=== PATIENT | male | born 1940 | race Caucasian/White ===

== ENCOUNTER → 2019-05-29 09:56 | Outpatient (CLI) | payer MEDICARE, OTHER ==
--- NOTE | ~2019-05-29 | EC ---
PATIENT:HELGA PAYTON DATE OF SERVICE: 05/29/19 SEX: M MEDICAL RECORD: [id number] DATE OF : 40 LOCATION:[facility] AGE OF PATIENT: 79 ADMISSION DATE: 05/29/19 REFERRING PHYSICIAN: INTERPRETING PHYSICIAN: TIAN JEFFERSON MD ECHOCARDIOGRAM REPORT ECHO CHARGES 4 ECHO COMPLETE Date: 05/29/19 CLINICAL DIAGNOSIS: LVH H/O CAD/CABG/HTN ECHOCARDIOGRAPHIC MEASUREMENTS (adult normal given) AC root (d.<3.7cm) 3.2 cm LV Septum d (<1.2 cm> 1.4 cm Valve Excursion 2.0 cm LV Septum (systole) 2.0 cm Left Atria (s.<4.0cm> 4.6 cm LVPW d(<1.2cm) 0.9 cm RV (d.<2.3cm) 3.2 cm LVPW (sytole) 1.3 cm LV diastole(<5.6CM) 5.9 cm MV E-F(>70mm/sec) cm LV systole 4.3 cm LVOT Diameter 2.0 cm MV exc.(>10mm) cm Est.ejection fraction (50-75%) % DOPPLER: LVIT cm/sec A 48.0 cm/sec E 82.0 cm/sec LA cm/sec RVSP 44.0 mmHg LVOT 101 cm/sec AOP1/2T m/s Asc. Ao 132 cm/sec RVOT 48.0 cm/sec RA cm/sec PA 127 cm/sec AV Gradient Peak 6.9 mmHg AV Mean 3.7 mmHg AV Area 2.3 cm MV Gradient Peak 4.1 mmHg MV Mean 1.3 mmHg MV Area cm COMMENTS: OP - HC Camera Prototyping Engineer: 1 BRENTON CALIXTO Meter/Relay Technician: 3 Dr. Suarez TAPE# PACS Pericardial Effusion N DATE OF SERVICE: Adequate 2D, color flow imaging, spectral Doppler, and M-Mode. LVH is present. LV internal dimension is normal. Wall motion is normal. EF is greater than or equal to 55%. Aortic valve is sclerotic. There is no evidence of stenosis by Doppler interrogation. Left atrium is dilated at 4-6 cm. Mitral valve shows no prolapse. Mild MR. Right-sided chamber is grossly normal. Mild TR. ECHOCARDIOGRAM REPORT [id number] HELGA PAYTON TRANSINT:[id number] Voice Confirmation ID: [id number] DOCUMENT ID: [id number] TIAN JEFFERSON MD CC: [id number] DICTATION DATE: 05/29/19 1546 CANS VACUUM TESTER: 05/29/19 211 [address] [facility] [address] [id number]
--- NOTE | ~2019-05-29 | ST ---
PATIENT:HELGA PAYTON MEDICAL RECORD: [id number] SEX: M LOCATION:[facility] ORDER #: ADMISSION DATE: 05/29/19 AGE OF PATIENT: 79 REFERRING PHYSICIAN: INTERPRETING PHYSICIAN: MONSE BRITO MD DATE OF SERVICE: 05/29/2019 PROCEDURE: Nuclear stress test. INDICATION: Angina and coronary artery disease, previous bypass surgery, hypertension and hyperlipidemia. The patient was exercised on standard Lexiscan protocol with 33 mCi of sestamibi injected at peak stress, 10 mCi used previously for rest images. FINDINGS: Gated SPECT reveals preserved ejection fraction at 64% with good wall motioning and thickening and brightening throughout all segments. SPECT imaging Cardiolite was used as myocardial perfusion agent. There is reversibility inferiorly as well as laterally. This includes the basal, mid, apical inferior segments as well as the apical lateral, mid lateral, basal lateral segments. The very first ability is mild. The amount of myocardium involved is moderate to large. OVERALL IMPRESSION: This is an intermediate risk abnormal nuclear stress test. Reversible ischemia inferiorly as well as laterally, possibly suggestive of hemodynamically significant multivessel coronary artery disease. TRANSINT:[id number] Voice Confirmation ID: [id number] DOCUMENT ID: [id number] MONSE BRITO MD CC: SONI HILL DO [id number] DICTATION DATE: 05/30/19921 NETWORK OPERATIONS SPECIALIST: 05/31/1928 DEP CLI 05/29/19 [address] [place] [id number] [place] [address]
== END | disposition home or self-care (01) ==
LOC: D.HCCECHO 09:56
PROVIDERS: ATTEND Internal Medicine Interventional Cardiology
DX: I25.810 Atherosclerosis of coronary artery bypass graft(s) without angina pectoris (principal); I10 Essential (primary) hypertension

== ENCOUNTER 2019-06-02 12:28 | Outpatient (CLI) | payer MEDICARE, OTHER ==
[~2019-06-02] VITALS: Ht 177.8 cm; Wt 92.0 kg
--- NOTE | ~2019-06-02 | DS ---
PATIENT:HELGA YOUSSEF :40 MEDICAL RECORD: [id number] DISCHARGE SUMMARY ADMISSION DATE: 06/02/19 DISCHARGE DATE: 06/03/19 DISCHARGE DATE: 06/03/2019 DISCHARGE DIAGNOSES: 1. Angina. 2. Coronary artery disease. 3. Hypertension. 4. Hyperlipidemia. HOSPITAL COURSE: Mr. Youssef presents with anginal symptomatology; however, cardiac catheterization reveals wide patency of all his grafts. He was placed on Imdur 30 mg b.i.d. He will follow up with [facility] in 1 month. TRANSINT:[id number] Voice Confirmation ID: [id number] DOCUMENT ID: [id number] MONSE BRITO MD CC: [id number] DICTATION DATE: 06/03/1930 DIESEL CRANE OPERATOR: 06/04/19 0646 DEP CLI 06/03/[address] [address]
--- NOTE | ~2019-06-02 | OP ---
PATIENT NAME: HELGA PAYTON MEDICAL RECORD: [id number] :40 LOCATION:[facility] ADMISSION DATE: SURGEON: MONSE BRITO MD DATE OF OPERATION: 06/03/2019 PROCEDURES: 1. Left heart catheterization. 2. Selective coronary angiography. 3. Left ventriculogram. INDICATION: Angina and coronary artery disease. PROCEDURE IN DETAIL: After informed consent was obtained and after a detailed description of the risks, benefits as well as alternative therapies, the patient elected to proceed with angiogram and heart catheterization. The right femoral area was prepped and draped in normal sterile fashion. Right femoral artery was cannulated via modified Seldinger technique with placement of 6-Albanian sheath. All catheters exchanged through this sheath. FINDINGS: The left ventriculogram was performed in standard 30-degree DUBOIS view, reveals good cardiac wall motion throughout all segments. Overall ejection fraction estimated at 55% to 60%. SELECTIVE CORONARY ANGIOGRAPHY: 1. Left main is with no significant angiographic disease. 2. Left anterior descending is closed in mid vessel. 3. The STRANGE to the LAD is widely patent. Distal LAD is widely patent. 4. Left circumflex is closed in the mid vessel. 5. Vein graft to the first obtuse marginal was widely patent. 6. Vein graft to the second obtuse marginal is widely patent. 7. Right coronary artery is closed in the mid vessel. 8. Vein graft to the right coronary is widely patent. 9. Distal right coronary is widely patent. OVERALL IMPRESSION: Wide patency of all grafts. Continue medical management of the coronary artery disease and cardiac risk factors. TRANSINT:[id number] Voice Confirmation ID: [id number] DOCUMENT ID: [id number] MONSE BRITO MD CC: [id number] DICTATION DATE: 06/03/19830 POWER SYSTEM DISPATCHER: 06/03/19 1851 DEP CLI 06/03/[address] [facility] [address] [id number]
--- NOTE | ~2019-06-02 | HEMODYNAMI ---
PATIENT:HELGA PAYTON MEDICAL RECORD: [id number] : 40 [id number] ADMISSION DATE: 06/02/19 Generatedon:06/03/20198:28 Patient name: HELGA PAYTON Patient #: [id number] : 1940 Date of study: 06/03/2019 Page: Of Hemodynamic Procedure Report Patient Data Patient Demographics Procedure consent was obtained First Name: HELGA Gender: Male Last Name: TATA : 1940 Patient #: [id number] Age: 79 year(s) Race: SSN: [id number] Additional ID: [id number] Contact details Address: [address] [place] [address] [place] State: [place] City: [place] Zip code: [address] Admission Admission Data Admission Date: 06/02/2019 Admission Time: 12:28 Arrival Date: 06/03/2019 Arrival Time: 12:28 Admit Source: Other Insurance Payor: Medicare Room #: D.2122 [facility] #: [id number] Height (in.): 69.69 BSA: 2.09 (m2) Height (cm.): 177 BMI: 29.37 (kg/m2) Weight (lbs.): 202.83 Weight (kg.): 92 Lab Results Lab Result Date: 06/03/2019 Lab Result Time: 0:00 Biochemistry Name Units Result Min Max BUN mg/dl 22 --(----)-* 7 18 Creatinine mg/dl 1.6 --(----)-* 0.6 1.3 eGFR ml/min 44 *-(----)-- 90 120 NONAFRICAN CBC Name Units Result Min Max Hemoglobin g/dl 13.9 --(*---)-- 13.5 17.5 Procedure Procedure Types Cath Procedure Diagnostic Procedure LHC LHC w/Coronaries w/Grafts Sedation Charges Moderate Sedation up to 15 minutes Procedure Description Procedure Date Procedure Date: 06/03/2019 Procedure Start Time: 8:19 Procedure End Time: 8:26 Procedure Staff Name Function Tommy Fox MD Performing Physician Harriet Montano RT Monitor Melissa Baron RT Scrub Benjamin Patricio RN Nurse Procedure Data Cath Procedure Fluoroscopy Diagnostic fluoroscopy Total fluoroscopy Time: 2.1 time: 2.1 min min Diagnostic fluoroscopy Total fluoroscopy dose: 632 dose: 632 mGy mGy Contrast Material Contrast Material Type Amount (ml) Isovue 300 74 Entry Location Entry Primary Successful Side Size Upsize Upsize Entry Closure Succes sful Closure Location (Fr) 1 (Fr) 2 (Fr) Remarks Device Remarks Femoral Right 5 Fr Exoseal artery Estimated blood loss: 5 ml Diagnostic catheters Device Type Used For End Catheter Placement MULTIPACK Pigtail 5 Fr LV Angiography catheter MULTIPACK JL 4.0 5Fr Left Coronary catheter Angiography MULTIPACK 3DRC 5Fr Multi-vessel catheter Angiography DIAGNOSTIC AR2 MOD 5 Fr SVG Angiography catheter ([id number]) Procedure Complications No complications Procedure Medications Medication Administration Route Dosage Oxygen etCO2 Nasal cannula 2 l/min Lidocaine 2% added to field 20 Heparin Flush Bag added to field 2 bags (1000units/500ml NS) 0.9% NaCl I.V. 100 ml/hr Fentanyl I.V. 50 mcg Fentanyl I.V. 50 mcg Versed I.V. 2 mg Versed I.V. 1 mg Fentanyl I.V. 50 mcg Hemodynamics Rest BSA: 2.09 (m2) HGB: 13.9 (g/dl) O2 Consumption: Estimated: 252.03 (ml/min) O2 Co nsumption indexed: Estimated:120.59 (ml/min/m) Heart Rate: 86 (bpm) Snapshots Pre Cath Intra NCS Post Cath Vital Signs Time Heart Resp SPO2 etCO2 NIBP (mmHg) Rhythm Pain Sedation Rate (ipm) (%) (mmHg) Status Level (bpm) 7:42:18 80 21 95 30.2 123/67(90) NSR 0 (11) 10(A) , No pain 7:46:28 84 21 95 29.4 121/67(87) NSR 0 (11) 10(A) , No pain 7:50:38 84 18 93 29.4 106/71(95) NSR 0 (11) 10(A) , No pain 7:54:44 85 16 94 24.1 110/66(75) NSR 0 (11) 10(A) , No pain 7:58:49 79 15 95 29.4 108/67(92) NSR 0 (11) 10(A) , No pain 8:02:55 82 13 94 15.8 109/63(87) NSR 0 (11) 10(A) , No pain 8:06:51 85 12 95 16.6 103/73(82) NSR 0 (11) 10(A) , No pain 8:10:52 84 16 93 27.9 110/74(96) NSR 0 (11) 10(A) , No pain 8:14:58 85 15 94 36.2 111/64(92) NSR 0 (11) 9(A) , No pain 8:19:06 82 13 94 24.1 109/61(105) NSR 0 (11) 9(A) , No pain 8:23:12 88 14 94 24.9 122/68(109) NSR 0 (11) 10(A) , No pain Medications Time Medication Route Dose Verified Delivered Reason Notes Effe ctiveness by by 7:45:34 Oxygen etCO2 2 Tommy Buffie used for Nasal l/min Ruddy Patricio RN procedure cannula 7:45:56 Lidocaine 2% added 20ml Tommy Sanders for local to vial Ruddy Fox MD anesthetic field 7:46:03 Heparin Flush added 2 Tommy Tommy used for Bag to bags Ruddy Fox MD procedure (1000units/500ml field NS) 7:46:11 0.9% NaCl I.V. 100 Tommy Buffie Per ml/hr Ruddy Patricio RN physician 8:00:04 Fentanyl I.V. 50 Tommy Buffie for back mcg Ruddy Patricio RN pain 8:12:57 Fentanyl I.V. 50 Tommy Buffie for back mcg Ruddy Patricio RN pain 8:17:44 Versed I.V. 2 mg Tommy Buffie for Ruddy Patricio RN sedation 8:22:38 Versed I.V. 1 mg Tommy Buffie for Ruddy Patricio RN sedation 8:22:42 Fentanyl I.V. 50 Tommy Carolinaie for back mcg Ruddy Patricio RN pain Procedure Log Time Note 7:01:54 Diagnostic Cath Status : Elective 7:02:47 Informed consent obtained and on chart 7:03:58 Admit Source: Other 7:04:01 Arrival Date: 06/03/2019 12:28:00 PM 7:04:28 Insurance Payor : Medicare 7:04:46 Patient Height : 69.69 inches 7:04:49 Patient Weight : 202.83 lbs 7:05:09 Lab Result : eGFR NONAFRICAN 44 ml/min 7:05:09 Lab Result : Creatinine 1.6 mg/dl 7:05:09 Lab Result : BUN 22 mg/dl 7:05:09 Lab Result : Hemoglobin 13.9 g/dl 7:05:44 Procedure Status Urgent Heart Cath (IP). 7:12:49 Time tracking: Regular hours (M-F 7:00 - 5:00) 7:12:53 Plan of Care:Hemodynamics will remain stable., Cardiac rhythm will remain stable., Comfort level will be maintained., Respiratory function will remain adequate., Patient/ family verbilizes understanding of procedure., Procedure tolerated without complication., Recovers from procedure without complications.. 7:21:25 Benjamin Patricio RN sent for patient. Start room use. 7:23:50 3b) 30-44 Moderately reduced kidney function. 7:24:39 Maximum allowable contrast dose (3.7 X eGFR X 0.75)122 ml. 7:41:09 Patient received from Med II to CCL 2 Alert and oriented. Tansferred to table in Supine position. 7:41:10 Warm blankets applied, and jorge hugger turned on for patient comfort. 7:41:11 Correct patient and procedure confirmed by team. 7:41:11 ECG and BP/O2 sat monitors applied to patient. 7:41:12 Baseline sample Acquired. 7:41:12 Vital chart was started 7:41:18 Rhythm: sinus tachycardia 7:41:20 Full Disclosure recording started 7:41:24 H&P Date Dictated: 06/03/2019 New H&P dictated by physician.. 7:41:25 Pre-procedure instructions explained to patient. 7:41:26 Pre-op teaching completed and patient verbalized understanding. 7:41:27 Family in patients room. 7:41:29 Patient NPO since Midnight. 7:41:31 Is the patient allergic to Iodine/contrast media? No. 7:41:32 Was the patient premedicated? Yes 7:41:32 Is patient on blood thinner?No 7:41:34 Patient diabetic? No. 7:41:41 Previous problem with sedation/anesthesia? Yes SENSITIVE 7:41:43 Snore? Yes 7:41:44 Sleep apnea? No 7:41:45 Deviated septum? No 7:41:46 Opens mouth fully? Yes 7:41:47 Sticks out tongue? Yes 7:41:51 Airway obstruction? No ? 7:41:54 Dentures? No ? 7:41:57 Pre procedure: right dorsailis pedis pulse 2+ Normal; easily identifiable; not easily obliterated 7:42:00 Pre procedure: left dorsailis pedis pulse 2+ Normal; easily identifiable; not easily obliterated 7:42:03 Patient pain scale 0/10 ?. 7:42:09 IV patent on arrival in left forearm with 0.9% NaCl at [facility]. 7:42:12 Lab results completed and on chart. 7:42:17 Stress Test: no; N/A ? 7:42:20 Risk of Mortality: 0.6 7:42:23 Risk of blood transfusion: 1.6 7:42:27 Risk of HODA: 3.8 7:42:31 Right groin area was prepped with chlora-prep and draped in sterile fashion 7:42:32 Alarms reviewed by R. N. 7:42:32 Sharps counted by scrub and verified by R.N. 7:45:34 Oxygen 2 l/min etCO2 Nasal cannula was administered by Benjamin Patricio RN; used for procedure; Verbal order read back and verified. 7:45:56 Lidocaine 2% 20ml vial added to field was administered by Tommy Fox MD; for local anesthetic; Verbal order read back and verified. 7:46:03 Heparin Flush Bag (1000units/500ml NS) 2 bags added to field was administered by Tommy Fox MD; used for procedure; Verbal order read back and verified. 7:46:11 0.9% NaCl 100 ml/hr I.V. was administered by Benjamin Patricio RN; Per physician; Verbal order read back and verified. 8:00:04 Fentanyl 50 mcg I.V. was administered by Benjamin Patricio RN; for back pain; Verbal order read back and verified. 8:12:39 Physician arrived 8:12:40 --------ALL STOP TIME OUT------ 8:12:40 Final Timeout: patient, procedure, and site verified with staff and physician. All members of the team are in agreement. 8:12:42 Right groin site verified by team. 8:12:46 Fire Safety Assessment: A--An alcohol-based skin anteseptic being used preoperatively., C--Open oxygen or nitrous oxide is being used., D--An ESU, laser, or fiber-optic light is being used. 8:12:49 Physical assessment completed. ASA score P 2 - A patient with mild systemic disease as per Tommy Fox MD. 8:12:57 Fentanyl 50 mcg I.V. was administered by Benjamin Patricio RN; for back pain; Verbal order read back and verified. 8:13:00 Sedation plan: IV Moderate Sedation Medication:Versed, Fentanyl 8:13:04 Use device set Femoral Dx 8:13:06 ACIST Syringe (57979) opened to sterile field. 8:13:07 Bag Decanter (2002S) opened to sterile field. 8:13:07 Medline Cath Pack ([id number]) opened to sterile field. 8:13:09 ACIST Hand Control (29156) opened to sterile field. 8:13:09 ACIST Manifold (30122) opened to sterile field. 8:13:10 DIAGNOSTIC Multipack 5Fr catheter set ([id number]) opened to sterile field. 8:13:11 Tegaderm 4 x 4 (1626W) opened to sterile field. 8:13:12 SHEATH 5FR [place] (KMX146) opened to sterile field. 8:13:12 EMERALD Guide Wire (720-063) opened to sterile field. 8:17:44 Versed 2 mg I.V. was administered by Benjamin Patricio RN; for sedation; Verbal order read back and verified. 8:19:23 Procedure started. 8:19:26 Local anesthetic to right femoral artery with Lidocaine 2% by Tommy Fox MD.INITIAL ACCESS ONLY 8:19:51 A 5 Fr sheath was inserted into the Right Femoral artery 8:19:57 A MULTIPACK Pigtail 5 Fr catheter was advanced over the wire and used for LV Angiography. 8:19:58 LV hemodynamics recorded. 8:19:59 LV gram done using DUBOIS 8:20:02 Injector settings: Ml/sec: 5, Volume: 15, 8:20:07 EF : 50 % 8:20:09 Catheter removed. 8:20:40 A MULTIPACK JL 4.0 5Fr catheter was advanced over the wire and used for Left Coronary Angiography. 8:20:50 LCA angiography performed. 8:20:53 Injector settings: Ml/sec: 3, Volume: 6, 8:21:12 Catheter removed. 8:21:20 A MULTIPACK 3DRC 5Fr catheter was advanced over the wire and used for Multi-vessel Angiography. 8:22:09 STRANGE to LAD angiography performed. 8:22:35 RCA angiography performed. 8:22:38 Versed 1 mg I.V. was administered by Benjamin Patricio RN; for sedation; Verbal order read back and verified. 8:22:41 Injector settings: Ml/sec: 3, Volume: 6, 8:22:42 Fentanyl 50 mcg I.V. was administered by Benjamin Patricio RN; for back pain; Verbal order read back and verified. 8:22:42 Catheter removed. 8:22:46 A DIAGNOSTIC AR2 MOD 5 Fr catheter ([id number]) was advanced over the wire and used for SVG Angiography. 8:23:28 SVG to Circ angiography performed. 8:23:49 SVG to Circ angiography performed. 8:24:02 SVG to RCA angiography performed. 8:24:20 Injector settings: Ml/sec: 3, Volume: 6, 8:24:31 Catheter removed. 8:24:33 EXOSEAL 5Fr (EX500) opened to sterile field. 8:24:55 Sheath removed intact; hemostasis achieved with Exoseal to the Right Femoral artery. 8:24:57 Procedure ended.(Physican Out) 8:25:07 Fluoroscopy time 02.10 minutes. 8:25:11 Fluoroscopy dose: 632 mGy 8:25:11 Flurop Dose total: 632 8:25:18 Dose Area Product 59442 mGy/cm. 8:25:23 Contrast amount:Isovue 300 74ml. 8:25:25 Maximum allowable dose exceeded? No. 8:25:36 Sharps counted by scrub and verified by R.N. 8:25:37 Insertion/operative site no bleeding no hematoma. 8:25:40 Post-op/insertion site Right Femoral artery dressed using a 4 x 4 and Tegaderm. 8:25:41 Post Procedure Pulses reassessed and unchanged 8:25:44 Post procedure rhythm: unchanged. 8:25:46 Estimated blood loss: 5 ml 8:25:48 Post procedure instruction explained to patient.Patient verbalizes understanding. 8:25:48 Patient needs reinforcement of post procedure teaching. 8:26:21 Procedure type changed to Cath procedure, Diagnostic procedure, LHC, LHC w/Coronaries w/Grafts, Sedation Charges, Moderate Sedation up to 15 minutes 8:26:22 Procedure and supply charges have been captured, reviewed, submitted and are correct. 8:26:28 Procedure Complication : No complications 8:26:30 Vital chart was stopped 8:26:41 [facility] Findings: mild to moderate CAD (<70%) 8:26:43 Operative report dictated upon procedure completion. 8:26:43 See physician's report for complete and final results. 8:26:50 Report given to [facility]. 8:26:52 Patient transfered to [facility] with Stretcher. 8:26:54 Procedure ended. 8:26:54 Full Disclosure recording stopped 8:26:59 End room use (Document Last) Device Usage Item Name Manufacture Quantity Catalog Hospital Part Current Minimal L ot# / Number Charge Number Stock Stock Serial# Code ACIST Acist 1 18185 861999 042251 383203 20 Syringe Medical (75688) Systems Inc Bag Microtek 1 693124 37190 162910 5 Decanter Medical Inc. () Medline Medline 1 [id number] 584715 50835 074318 5 Cath Pack ([id number]) ACIST Hand Acist 1 22566 099423 251477 694428 5 Control Medical (41515) Systems Inc ACIST Acist 1 29515 710315 211737 700712 5 Manifold Medical (91179) Systems Inc DIAGNOSTIC Cardinal 1 UT8011 957788 73049 954805 30 Multipack Health 5Fr catheter set (MH5436) Tegaderm 4 3M 1 1626W 723343 660497 045861 5 x 4 (1626W) SHEATH 5FR Terumo 1 MVG751 635372 981155 970765 5 [place] (PNC800) EMERALD Cardinal 1 502-455 016041 886061 309329 5 Guide Wire Health (789-308) MULTIPACK Cardinal 1 135268 5 Pigtail 5 Health Fr catheter MULTIPACK Cardinal 1 047192 5 JL 4.0 5Fr Health catheter MULTIPACK Cardinal 1 847051 5 3DRC 5Fr Health catheter DIAGNOSTIC Cardinal 1 [id number] 980574 653763 854658 20 AR2 MOD 5 Health Fr catheter (597815R) EXOSEAL 5Fr Cardinal 1 EX500 121375 524845 042928 10 (EX500) Health Signature Audit [place] Stage Time Signature Unsigned Intra-Procedure 06/03/2019 Harriet Montano 8:28:06 AM RT(R) Intra-Procedure 06/03/2019 Benjamin Patricio RN 8:28:27 AM Intra-Procedure 06/03/2019 Tommy Fox 8:28:42 AM Signatures Performing Physician : Signature : Tommy Fox MD Date : Time : Monitor : Harriet Montano RT Signature : Date : Time : Nurse : Benjamin Patricio RN Signature : Date : Time : [facility] [address] [place] [address]
[2019-06-02 12:55] LABS: BASOPHILS 0.6 % (0-2); HEMATOCRIT 42.1 % (42.0-54.0); HEMOGLOBIN 13.9 g/dL (13.5-17.5); IMMATURE GRANULOCYTES 0.2 % (0-5); LYMPHOCYTES 23.6 % (15-50); MCH 29.6 pg (26.0-34.0); MCV 89.6 fL (80.0-100.0); MEAN PLATELET VOLUME 8.8 fL (7.4-10.4); MONOCYTES 7.5 % (2-11); NEUTROPHILS 65.1 % (40-80); PLATELET COUNT 170 10x3/uL (130-400); RDW 12.8 % (11.5-14.5); WBC 8.1 10x3/uL (4.8-10.8)
[2019-06-02] MEDS ORDERED: OMEPRAZOLE20 M1 PO (12:55)
[2019-06-02] MEDS ORDERED: NORVASC10 MG PO (12:56)
[2019-06-02] MEDS ORDERED: ZOCOR20 MG PO (12:57)
[2019-06-02] MEDS ORDERED: XANAX0.5 MG PO (12:57)
[2019-06-02] MEDS ORDERED: CARDURA2 MG PO (12:57)
[2019-06-02 13:04] LABS: APTT 35.4 SECONDS (22.8-39.4); INR 1.06 (0.85-1.17); PROTIME 13.8 SECONDS (11.6-15.0)
[2019-06-02 13:16] LABS: CALC OSMOLALITY 274 mosm/kg (275-300); CALCIUM 8.2 mg/dL (8.5-10.1); CARBON DIOXIDE 27.3 mmol/L (21.0-32.0); CHLORIDE - SERUM 101 mmol/L (98-107); CREATININE - SERUM 1.6 mg/dL (0.6-1.3); GLUCOSE 95 mg/dL (74-106); POTASSIUM - SERUM 3.9 mmol/L (3.5-5.1); SODIUM 136 mmol/L (136-145); UREA NITROGEN 22 mg/dL (7-18); eGFR NON AFRICAN AMERICAN 44 mL/min (90-120)
[2019-06-02 13:29] LABS: ALBUMIN 3.6 g/dL (3.4-5.0); ALKALINE PHOSPHATASE 75 U/L (30-120); ALT (SGPT) 24 U/L (10-68); BILIRUBIN - TOTAL 0.34 mg/dL (0.2-1.3); CKMB 1.3 U/L (0.0-3.6); CREATINE KINASE 206 UL (21-232); MAGNESIUM - SERUM 1.8 mg/dL (1.8-2.4); PROTEIN - SERUM 6.5 g/dL (6.4-8.2)
[2019-06-02 13:32] LABS: TROPONIN-I < 0.017 ng/mL (0.000-0.060)
--- NOTE | 2019-06-02 15:15 | NUR ---
RECEIVED PT FROM ER VIA W/C IN STABLE CONDITION TO ROOM 2121 AAOX4 RESP UNLABORED RWELEMETRY APPLIED SR RATE 83 SALINE LOCK INTACT TO LFA no redness or edema noted to site nad noted denies any pain will cont to monitor
[2019-06-02] MEDS ORDERED: BAYER CHEWABLE81 MG PO (15:17)
[2019-06-02 15:30] VITALS: BP 120/64
[2019-06-02 15:40] VITALS: BP 120/64; Ht 177.8 cm; Wt 92.0 kg
--- NOTE | 2019-06-02 19:45 | NUR ---
REPORT RECIEVED AND INITIAL ROUNDS COMPLETED. PT RESTING IN BED. AT BEDSIDE. ALERT/ORIENTED AND AMBULATORY. SR PER TELEMETRY. SALINE LOCK TO LFA. EXTENSIVE CARDIAC HISTORY AND PLANS ARE TO CATH HIM TOMORROW. PT REQUESTING TO HAVE DR JEFFERSON PROVIDE HIS CARE IF POSSIBLE. WILL NOTIFY ELECTRONIC TEST TECHNICIAN IN AM. INSTRUCTED PT ON NPO AFTER MIDNIGHT. PT HAS HOME MEDS AND ALL ARE ACCEPTABLE TO TAKE TONIGHT.
[2019-06-02 20:00] VITALS: BP 119/59
[2019-06-03 00:01] VITALS: BP 110/66
--- NOTE | 2019-06-03 02:59 | NUR ---
RESTING IN BED WITH NO DISTRESS. NPO FOR AM HEART CATH. CPOC. CALL LIGHT IN REACH. AT BEDSIDE.
[2019-06-03] MEDS ORDERED: LASIX20 MG PO (05:27)
[2019-06-03] MEDS ORDERED: K-DUR20 MEQ PO (05:28)
--- NOTE | 2019-06-03 07:15 | NUR ---
RECIEVE REPORT. ALERT AND ORIENTED X4. SITTING UP IN BED. FAMILY AT BEDSIDE. PRE-OP FOR ETCHER MACHINE COMPLETE. TAKEN TO ETCHER MACHINE VIA BED. CONTINUE PLAN OF CARE AND SAFETY PRECAUTIONS.
--- NOTE | 2019-06-03 08:30 | HP ---
PATIENT: HELGA PAYTON MEDICAL RECORD: [id number] ACCOUNT: [id number] LOCATION:[address] : 40 ADMISSION DATE: 06/02/19 PCP: SONI HILL DO HISTORY AND PHYSICAL EXAMINATION ADMITTING DIAGNOSES: 1. Unstable angina. 2. Coronary artery disease. 3. Status post coronary artery bypass graft surgery 14 years ago. 4. Abnormal ECG suggestive of lateral ischemia. 5. Hypertension. 6. Hyperlipidemia. HISTORY OF PRESENT ILLNESS: Mr. Payton has been followed by Dr. Suarez for coronary artery disease, status post coronary artery bypass graft surgery 14 years ago. He has been having increasing episodes of chest pain compatible with angina. He underwent stress testing this last week, which was abnormal. He was set for possible cardiac catheterization later in the week. He presents with increasing chest pain. His EKG suggests lateral ischemia. PHYSICAL EXAMINATION: CONSTITUTIONAL/GENERAL APPEARANCE: Well nourished, well developed, appears stated age. EYES: Lids and conjunctivae noninjected. No discharge. No pallor. ENT: Lips within normal limit. No cyanosis. No pallor. NECK: Carotid arteries, bilateral normal upstroke. No bruits. No thrills. No jugular venous pressure or distention. CERVICAL LYMPH NODES: Nontender. Nonenlarged. THYROID: Not enlarged. No nodules. CARDIOVASCULAR: Precordial exam, nondisplaced. No heaves or pericardial thrills. Rate and rhythm, regular. Heart sounds, normal S1, normal S2. No S3, no gallop, no rub. Systolic murmur, not heard. Diastolic murmur, not heard. RESPIRATORY: Respiratory effort, unlabored. Normal curvature. No thoracic deformity. No chest wall tenderness. Percussion, resonant. Auscultation, clear. No wheezes, no rales, no rhonchi. ABDOMEN: Soft, nondistended, nontender. No abdominal pain, no vomiting and normal appetite. MUSCULOSKELETAL: No joint tenderness, normal gait, normal tone. SKIN: Warm and dry. OVERALL IMPRESSION: Unstable angina. No doubt he has recurrent hemodynamically significant coronary artery disease. We will admit, start nitrates, aspirin, Plavix and proceed with coronary angiography in the a.m. TRANSINT:[id number] Voice Confirmation ID: [id number] DOCUMENT ID: [id number] HISTORY AND PHYSICAL [id number] HELGA PAYTON JEFFREY MD at 0830 CC: [id number] DICTATION DATE: 06/02/19 1241 SOFTWARE QUALITY AUTOMATION ENGINEER: 06/02/19 [id number] [place] [id number]
--- NOTE | 2019-06-03 08:55 | NUR ---
RETURN TO ROOM VIA BED FROM MINISTER ASSISTANT. FAMILY AT BEDSIDE. BP-120/65, HR-79 SINUS RYTHM, O2-95% WITH 2L NC. RT GROIN DRESSING C/D/I. FREE FROM BLEEDING. FREE FROM HEMATOMA. PULSE +2 BILATERALLY. CONTINUE PLAN OF CARE AND SAFETY PRECAUTIONS.
--- NOTE | 2019-06-03 11:00 | NUR ---
ALERT AND ORIENTED X4. SITTING UP IN BED. RT GROIN DRESSING CLEAN DRY INTACT. FREE FROM BLEEDING. FREE FROM HEMATOMA. SPOUSE REPORTS BLOOD IN URINE. REQUEST TO SAVE NEXT URINATION. WAIT FOR DC DUE TO REPORTED BLOOD AND ELEVATED KIDNEY FUNCTIONS. CONTINUE IV FLUIDS TO FLUSH KIDNEYS.
--- NOTE | 2019-06-03 15:00 | NUR ---
URINATES IN URINAL. URINE CLEAR. FURRIER DESIGNER DC LT FA IV TIP INTACT. FURRIER DESIGNER INITIATES DISCHARGE INSTRUCTIONS.
--- NOTE | 2019-06-03 15:28 | NUR ---
ESCORT TO RIDE VIA WHEELCHAIR. REMAINS FREE FROM INJURY.
== END 2019-06-03 15:48 | disposition home or self-care (01) ==
LOC: D.ER 12:28 → D.M2 12:28 → D.OPS 12:28 → D.M2 13:18 → EDSTATUS 14:00 → D.OPS 06-03 15:48
PROVIDERS: Emergency Medicine; ATTEND Internal Medicine Interventional Cardiology
DX: I25.119 Atherosclerotic heart disease of native coronary artery with unspecified angina pectoris (principal); I10 Essential (primary) hypertension; E78.5 Hyperlipidemia, unspecified; R94.31 Abnormal electrocardiogram [ECG] [EKG]